=== PATIENT | female | born 1940 | race Hispanic/Latino ===

== ENCOUNTER 2018-11-19 12:42 | Emergency (ER) | payer MEDICARE, BC ==
[2018-11-19 12:54] VITALS: BMI 37.8
[2018-11-19 12:58] VITALS: RESP 18
[2018-11-19 13:45] VITALS: TEMP 98.8
--- NOTE | 2018-11-19 13:57 | RAD ---
Date of service: 11/19/2018 HISTORY: chest pain COMPARISON: Chest radiographs 07/04/2014. FINDINGS: LUNGS: No active pulmonary disease. PLEURA: No significant pleural effusion identified, no pneumothorax apparent. CARDIOVASCULAR: No aortic atherosclerotic calcification present. Normal cardiac size. No pulmonary vascular congestion. OSSEOUS STRUCTURES: No significant abnormalities. VISUALIZED UPPER ABDOMEN: Normal. OTHER FINDINGS: None. IMPRESSION: No interval acute cardiopulmonary disease appreciated.
[2018-11-19 14:10] LABS: BASO # 0.07 K/mm3 (0.0-2.0); BASO % 0.9 % (0.0-3.0); EOS # 0.2 (0.0-0.7); EOS % 3.1 % (1.5-5.0); HEMOGLOBIN 13.7 g/dL (12.0-16.0); LYMPH # 1.5 (1.2-3.4); LYMPH % 19.3 % (22.0-35.0); MEAN CELL VOLUME 93.8 fl (80.0-105.0); MEAN CORPUSCULAR HEMOGLOBIN 31.3 pg (25.0-35.0); MEAN CORPUSCULAR HGB CONC 33.3 g/dl (31.0-37.0); MEAN PLATELET VOLUME 10.9 fl (7.0-11.0); MONO % 12.3 % (1.0-6.0); RBC 4.38 10^6/uL (3.5-6.1); RED CELL DISTRIBUTION WIDTH 13.7 % (11.5-14.5); WHITE BLOOD COUNT 7.8 10^3/uL (4.5-11.0)
--- NOTE | 2018-11-19 14:10 | ED PDOC ---
Arrival/HPI - General Chief Complaint: Palpitations Historian: Patient - History of Present Illness Narrative History of Present Illness (Text): 11/19/18 14:02 Laurie Diehl is a 78 year old female, with a past medical history of bronchitis, UTI, CAD s/p stents (2010 & 2015), and back surgery, who presents to the emergency department complaining of palpitations since 3 days. Patient states she did not finish her antibiotics for her bronchitis and UTI from a week ago. Patient informs symptoms are worsened when breathing deeply. Patient denies fevers, chills, headache, dizziness, chest pain, dyspnea on exertion, cough, abdominal pain, nausea, vomiting, diarrhea, back pain, neck pain, or any other complaint. Time/Duration: < week Symptom Course: Intermittent Activities at Onset: Light Context: Home Past Medical History - Provider Review Nursing Documentation Reviewed: Yes - Infectious Disease Hx of Infectious Diseases: None - Cardiac Hx Hypertension: Yes Other/Comment: Cardiac cath with 3-4 stents - Musculoskeletal/Rheumatological Hx Back Pain: Yes Other/Comment: h/o back sx in 1999 - Psychiatric Hx Substance Use: No - Surgical History Hx Section: Yes (x2) Hx Hysterectomy: Yes Other/Comment: Back surgery in 1999 - Anesthesia Hx Anesthesia: Yes Hx Anesthesia Reactions: No Hx Malignant Hyperthermia: No Family/Social History - Physician Review Nursing Documentation Reviewed: Yes Family/Social History: Unknown Family HX Smoking Status: Never Smoked Hx Alcohol Use: No Hx Substance Use: No Allergies/Home Meds Allergies/Adverse Reactions: Allergies clarithromycin Allergy (Verified 11/19/18 13:06) RASH steroid Adverse Reaction (Uncoded 11/19/18 12:54) DIZZINESS palpitations Home Medications: Home Meds Medication Instructions Recorded Confirmed Aspirin [Adult Aspirin] 1 tab PO DAILY 11/19/18 11/19/18 Atorvastatin [Lipitor] 20 mg PO HS 11/19/18 11/19/18 Metoprolol Tartrate [Lopressor] 1 tab PO DAILY 11/19/18 11/19/18 Review of Systems - Physician Review All systems were reviewed & negative as marked: Yes - Review of Systems Constitutional: absent: Fevers, Night Sweats Respiratory: SOB. absent: Cough Cardiovascular: Palpitations. absent: Chest Pain, LARA Gastrointestinal: absent: Abdominal Pain, Diarrhea, Nausea, Vomiting Musculoskeletal: absent: Back Pain, Neck Pain Neurological: absent: Headache, Dizziness Physical Exam Vital Signs Reviewed: Yes Vital Signs Temp Pulse Resp BP Pulse Ox 11/19/18 13:45 98.8 F 11/19/18 12:42 84 18 154/67 H 98 Temperature: Afebrile Blood Pressure: Hypertensive Pulse: Regular Respiratory Rate: Normal Appearance: Positive for: Well-Appearing, Non-Toxic, Comfortable Pain Distress: None Mental Status: Positive for: Alert and Oriented X 3 - Systems Exam Head: Present: Atraumatic, Normocephalic Pupils: Present: PERRL Extroacular Muscles: Present: EOMI Conjunctiva: Present: Normal Mouth: Present: Moist Mucous Membranes Neck: Present: Normal Range of Motion Respiratory/Chest: Present: Decreased Breath Sounds (diminished breath sounds body habitus. ). No: Respiratory Distress, Accessory Muscle Use Cardiovascular: Present: Regular Rate and Rhythm, Normal S1, S2. No: Murmurs, Tachycardic, Rub, Gallop Abdomen: No: Tenderness, Distention, Peritoneal Signs Back: Present: Normal Inspection Upper Extremity: Present: Normal Inspection. No: Cyanosis, Edema Lower Extremity: Present: Normal Inspection. No: Edema (no pedal edema) Neurological: Present: GCS=15, CN II-XII Intact, Speech Normal Skin: Present: Warm, Dry, Normal Color. No: Rashes Psychiatric: Present: Alert, Oriented x 3, Normal Insight, Normal Concentration, Anxious Medical Decision Making ED Course and Treatment: 11/19/18 14:02 Impression: Patient is a 78 year old female who presents to the emergency department with palpitations. Differential Diagnosis included but are not limited to: --Arrythmia(atrial flutter, a fib) --Bronchitis --PNA Plan: -- EKG -- Labs -- Chest X-Ray -- Urinalysis -- IV Insertion -- Reassess and disposition Prior Visits: Notes and results from previous visits were reviewed. Progress Notes 11/19/18 17:50 Labs performed with hyperkalemia noted. Review of patient's chart shows no evidence of potassium sparing drugs. D-dimer elevated to 690 with age-adjusted d-dimer at 760, with conclusion of a negative d-dimer.Hyperkalemia protocol ordered. Patient denies having any palpitations while in Emergency Room. Repeat EKG shows no ST elevations at this time. CXR shows no evidence of pulmonary infiltrates. Patient advised to follow up with her PCP and schedule an appointment with her clerical specialist. She demonstrates understanding and will follow up. She is stable for discharge. - Lab Interpretations Lab Results: 11/19/18 13:48 11/19/18 14:26 Lab Results 11/19/18 17:07: POC Glucose (mg/dL) 124 H 11/19/18 14:26: Sodium 139, Potassium 5.4 H, Chloride 106, Carbon Dioxide 28, Anion Gap 10, BUN 21, Creatinine 0.7, Est GFR ( Amer) > 60, Est GFR (Non- Af Amer) > 60, Random Glucose 93, Calcium 9.6, Magnesium 2.2, Total Bilirubin 0.7, AST 25, ALT 22, Alkaline Phosphatase 89, Troponin I < 0.01, NT-Pro-B Natriuret Pep 915 H, Total Protein 7.2, Albumin 4.1, Globulin 3.0, Albumin/Globulin Ratio 1.4 11/19/18 13:54: D-Dimer, Quantitative 629 H 11/19/18 13:48: PT 12.4, INR 1.12, APTT 32.0 11/19/18 13:48: WBC 7.8, RBC 4.38, Hgb 13.7, Hct 41.1, MCV 93.8, MCH 31.3, MCHC 33.3, RDW 13.7, Plt Count 251, MPV 10.9, Neut % (Auto) 64.4, Lymph % (Auto) 19.3 L, [place] % (Auto) 12.3 H, Eos % (Auto) 3.1, Baso % (Auto) 0.9, Lymph # (Auto) 1.5, [place] # (Auto) 1.0 H, Eos # (Auto) 0.2, Baso # (Auto) 0.07, Absolute Neuts (auto) 5.04 I have reviewed the lab results: Yes - RAD Interpretation Narrative RAD Interpretations (Text): 11/19/18 Chest X-ray: Dictator : Tony Mora MD IMPRESSION: No interval acute cardiopulmonary disease appreciated. Radiology Orders: 11/19/18 13:04 CHEST PORTABLE [RAD] Stat Zookeeper: Radiologist - EKG Interpretation EKG Interpretation (Text): 11/19/18 17:08 EKG shows NSR at 73 BPM with RBBB, LVH, and T wave inversion in leads v4-v5. No ST elevations. Interpreted by me. Interpreted by ED Physician: Yes Type: 12 lead EKG - Medication Orders Current Medication Orders: 11/19/18 18:30 Discontinued Medications Albuterol Sulfate (Albuterol 0.083% Inhal Emmanuelle (2.5 Mg/3 Ml) Ud) 2.5 mg INH STAT STA Stop: 11/19/18 16:23 Last Admin: 11/19/18 16:55 Dose: 2.5 mg Dextrose (Dextrose 50% Inj) 50 ml IVP STAT STA Stop: 11/19/18 16:23 Last Admin: 11/19/18 16:55 Dose: 50 ml IVP Administration Document 11/19/18 16:55 BB (Rec: 11/19/18 16:55 [id number] Charges for Administration # of IVP Administrations 1 Sodium Chloride (Sodium Chloride 0.9%) 1,000 mls @ 999 mls/hr IV .Q1H1M STA Stop: 11/19/18 15:35 Last Admin: 11/19/18 15:44 Dose: 999 mls/hr eMAR Start Stop Document 11/19/18 15:44 BB (Rec: 11/19/18 15:44 BB [id number]) Intravenous Solution Start Date 11/19/18 Start Time 15:44 Insulin Human Regular (Humulin R) 10 units IVP ONCE ONE Stop: 11/19/18 16:24 Last Admin: 11/19/18 16:55 Dose: 10 units MAR Blood Glucose Document 11/19/18 16:55 BB (Rec: 11/19/18 17:08 [id number] Blood Glucose Finger Stick Blood Glucose (70-120) 124 IVP Administration Document 11/19/18 16:55 BB (Rec: 11/19/18 17:08 [id number]) Charges for Administration # of IVP Administrations 1 Metoclopramide HCl (Reglan) 10 mg IVP STAT STA Stop: 11/19/18 14:36 Last Admin: 11/19/18 15:43 Dose: 10 mg IVP Administration Document 11/19/18 15:43 BB (Rec: 11/19/18 15:43 [id number]) Charges for Administration # of IVP Administrations 1 Sodium Bicarbonate (Sodium Bicarbonate 8.4% (50 Meq) Syringe) 50 meq IVP ONCE ONE Stop: 11/19/18 16:23 Last Admin: 11/19/18 16:55 Dose: 50 meq IVP Administration Document 11/19/18 16:55 BB (Rec: 11/19/18 16:55 BB [id number]) Charges for Administration # of IVP Administrations 1 - Scribe Statement The provider has reviewed the documentation as recorded by the Scribe Tony Chinchilla All medical record entries made by the Scribe were at my direction and personally dictated by me. I have reviewed the chart and agree that the record accurately reflects my personal performance of the history, physical exam, medical decision making, and the department course for this patient. I have also personally directed, reviewed, and agree with the discharge instructions and disposition. Disposition/Present on Arrival - Present on Arrival Any Indicators Present on Arrival: No History of DVT/PE: No History of Uncontrolled Diabetes: No Urinary Catheter: No History of Decub. Ulcer: No History Surgical Site Infection Following: None - Disposition Have Diagnosis and Disposition been Completed?: Yes Diagnosis: Palpitations Disposition: HOME/ ROUTINE Disposition Time: 17:53 Patient Plan: Discharge Patient Problems: Current Active Problems Problem Status Onset Palpitations Acute Condition: STABLE Discharge Instructions (ExitCare): Palpitations (DC) Print Language: UPPER SORBIAN Additional Instructions: All medical record entries made by the Scribe were at my direction and personally dictated by me. I have reviewed the chart and agree that the record accurately reflects my personal performance of the history, physical exam, med ical decision making, and the department course for this patient. I have also personally directed, reviewed, and agree with the discharge instructions and disposition. Please follow up with your PCP in 1 week Try to schedule an appointment with your clerical specialist Referrals: Ezequiel John MD [Family Provider] - Follow up with primary Leta Hodges MD [Staff Provider] - Follow up with primary Forms: Snipi (Setswana)
[2018-11-19 14:18] LABS: ALB/GLOB RATIO 1.4 (1.1-1.8); ALBUMIN 4.1 g/dL (3.0-4.8); BLOOD UREA NITROGEN 21 mg/dL (7-21); CALCIUM 9.6 mg/dL (8.4-10.5)
[2018-11-19 14:19] LABS: INR 1.12; PROTHROMBIN TIME 12.4 SECONDS (9.4-12.5)
[2018-11-19] MEDS ORDERED: Sodium Chloride 0.9% 1,000 ML IV STA (14:35)
[2018-11-19 14:36] LABS: B-TYPE NATRIURETIC PEPTIDE 915 pg/mL (0-450); TROPONIN I < 0.01 ng/mL
[2018-11-19 15:03] LABS: ALT/SGPT 22 U/L (7-56); AST/SGOT 25 U/L (14-36)
--- NOTE | 2018-11-19 15:06 | CARD ---
APPROVED REPORT Date of service: 11/19/2018 EKG Measurement Heart [id number] <Conclusion> Sinus rhythm with occasional premature ventricular complexes and fusion complexes Left ventricular hypertrophy with QRS widening ST & T wave abnormality, consider anterolateral ischemia Abnormal ECG
[2018-11-19 16:01] LABS: GFR NON-AFRICAN AMERICAN > 60
[2018-11-19] MEDS ORDERED: Dextrose 50% SYRINGE Inj (50 ml) IVP STA (16:22)
[2018-11-19] MEDS ORDERED: Albuterol 0.083% Inhal Sol (2.5 mg/3 mL) UD INH STA (16:22)
[2018-11-19] MEDS ORDERED: Sodium Bicarbonate (8.4%) 50 Meq Syringe IVP ONE (16:22)
[2018-11-19] MEDS ORDERED: Insulin Regular 1 UNITS/0.01 ML ML IVP ONE (16:23)
[2018-11-19 17:28] VITALS: BP 141/62; PULSE 84; O2SAT 98
--- NOTE | 2018-11-20 07:23 | CARD ---
APPROVED REPORT Date of service: 11/19/2018 EKG Measurement Heart [id number] <Conclusion> Normal sinus rhythm Possible Left atrial enlargement Right bundle branch block Left ventricular hypertrophy T wave abnormality, consider lateral ischemia Abnormal ECG
== END 2018-11-19 17:56 | disposition home or self-care (01) ==
LOC: ED 12:42
DX: R00.2 Palpitations (principal); I10 Essential (primary) hypertension; I25.10 Atherosclerotic heart disease of native coronary artery without angina pectoris
CPT/HCPCS: 71045; 80053; 82948; 83735; 83880; 84484; 85025; 85378; 85610; 85730; 93005; 96374; 96375; 99284; J2765; J7030